=== PATIENT | male | born 1985 | race African-American/Black ===

== ENCOUNTER 2016-10-30 13:40 | Emergency (ER) | payer MEDICAID ==
[~2016-10-30] VITALS: Ht 176.5 cm; Wt 79.5 kg
[~2016-10-30 13:40] MED LIST: AMOX-424 PO; VIC PO
[2016-10-30 15:21] VITALS: BP 129/89
[2016-10-30] MEDS ORDERED: ACETAMINOPHEN 500MG TABLET PO ONE (16:45)
== END 2016-10-30 17:12 | disposition home or self-care (01) ==
LOC: ER 16:40
DX: H57.8 Other specified disorders of eye and adnexa (principal); R51 Headache; F17.200 Nicotine dependence, unspecified, uncomplicated; F12.10 Cannabis abuse, uncomplicated; J45.909 Unspecified asthma, uncomplicated
CPT/HCPCS: 99282

== ENCOUNTER 2016-11-04 09:16 | Emergency (ER) | payer MEDICAID ==
[~2016-11-04] VITALS: Ht 175.3 cm; Wt 79.0 kg
[2016-11-04] MEDS ORDERED: TETRACAINE 0.5% OPHTH DROPS 4ML RIGHTEYE ONE (10:30)
[2016-11-04] MEDS ORDERED: FLUORESCEIN SODIUM 1MG/STRIP RIGHTEYE ONE (10:30)
[2016-11-04 10:48] VITALS: BP 118/72
== END 2016-11-04 11:26 | disposition home or self-care (01) ==
LOC: ER 09:16
DX: T65.893A Toxic effect of other specified substances, assault, initial encounter (principal); H10.211 Acute toxic conjunctivitis, right eye; L24.5 Irritant contact dermatitis due to other chemical products; F17.210 Nicotine dependence, cigarettes, uncomplicated; Z87.828 Personal history of other (healed) physical injury and trauma; Z71.6 Tobacco abuse counseling; Y92.89 Other specified places as the place of occurrence of the external cause
CPT/HCPCS: 99283; Z7610